=== PATIENT | male | born 1945 | race Caucasian/White ===

== ENCOUNTER 2020-07-02 16:37 | Observation (INO) | payer MEDICARE, BC ==
[~2020-07-02] VITALS: Ht 177.8 cm; Wt 80.9 kg
[2020-07-02] MEDS ORDERED: WELLBUTRIN SR150 M1 PO (17:22)
[2020-07-02] MEDS ORDERED: ELIQUIS 5MG PO (17:23)
[2020-07-02] MEDS ORDERED: ZESTRIL 10MG10 MG PO (17:25)
[2020-07-02] MEDS ORDERED: TOPROL XL 25MG25 MG PO (17:26)
[2020-07-02] MEDS ORDERED: VENTOLIN0.09 MG IH (17:27)
[2020-07-02 18:38] LABS: BASO # 0.1 (0.0-0.2); BASO % 0.4 % (0.0-2.0); EOS # 0.2 (0.0-0.7); EOS % 1.5 % (0-4.0); GRAN # 12.3 (1.4-6.5); GRAN % 78.6 % (42.2-75.2); HEMATOCRIT 45.5 % (42.0-52.0); LYMPH # 1.6 (1.2-3.4); LYMPH % 10.5 % (20.0-51.0); MEAN CELL VOLUME 90 fl (80.0-100.0); MEAN CORPUSCULAR HEMOGLOBIN 30 pg (27.0-31.0); MEAN CORPUSCULAR HGB CONC 33 g/dl (33.0-37.0); MEAN PLATELET VOLUME 9.3 fl (7.4-10.4); MONO # 1.3 (0.1-0.6); MONO % 8.5 % (1.7-9.3); PLATELET COUNT 421 K/mm3 (130-400); RED BLOOD COUNT 5.05 M/mm3 (4.20-5.60); REDCELL DISTRIBUTION WIDTH-CV 14.2 % (11.5-14.5)
[2020-07-02 18:41] LABS: ALBUMIN 4.2 gm/dL (3.5-5.0); BILIRUBIN,TOTAL 0.6 mg/dL (0.0-1.0); CALCIUM 9.3 mg/dL (8.4-10.2); CREATININE, serum 1.23 (0.66-1.25); TOTAL PROTEIN 8.1 gm/dL (6.4-8.2)
[2020-07-02 19:01] VITALS: BP 148/86; PULSE 54; TEMP 97.7
[2020-07-02] MEDS ORDERED: LOPRESSOR 550 MG/TAB PO (21:54)
[2020-07-02 22:16] VITALS: BP 98/53; PULSE 52; TEMP 99.3
--- NOTE | 2020-07-02 22:50 | NUR ---
Admission B form completed at this time. Pt resting in bed at this time. A&O x4. Complaints of intermittent LLQ pain that is only present with palpation or movement. Pt states when he is laying still in bed he does not have any pain. IVF infusing per orders to left hand IV. Pt denies any other needs at this time. Call light within reach.
[2020-07-02 23:03] VITALS: BP 101/59
[2020-07-03] VITALS (7 sets, daily range): BP systolic 100–145; BP diastolic 49–86; PULSE 53–86; TEMP 97.4–98.9
--- NOTE | 2020-07-03 05:20 | NUR ---
Pt has been resting in bed overnight. Complaints of pain to LLQ only with movement or palpation overnight however denied the need for pain medication. IVF infusing per orders to left hand IV. Pt denies any other needs. Call light within reach.
[2020-07-03 09:25] LABS: BASO # 0.1 (0.0-0.2); BASO % 0.4 % (0.0-2.0); EOS # 0.3 (0.0-0.7); EOS % 2.2 % (0-4.0); GRAN # 8.6 (1.4-6.5); GRAN % 76.7 % (42.2-75.2); HEMATOCRIT 43.9 % (42.0-52.0); HEMOGLOBIN 14.3 g/dl (13.5-18.0); LYMPH # 1.4 (1.2-3.4); LYMPH % 12.1 % (20.0-51.0); MEAN CELL VOLUME 91 fl (80.0-100.0); MEAN CORPUSCULAR HEMOGLOBIN 30 pg (27.0-31.0); MEAN CORPUSCULAR HGB CONC 33 g/dl (33.0-37.0); MEAN PLATELET VOLUME 9.5 fl (7.4-10.4); MONO # 0.9 (0.1-0.6); MONO % 8.2 % (1.7-9.3); PLATELET COUNT 362 K/mm3 (130-400); RED BLOOD COUNT 4.82 M/mm3 (4.20-5.60); REDCELL DISTRIBUTION WIDTH-CV 14.1 % (11.5-14.5)
[2020-07-03 09:35] LABS: CREATININE, serum 1.19 (0.66-1.25); POTASSIUM 3.8 mmol/L (3.4-5.0)
--- NOTE | 2020-07-03 11:40 | NUR ---
Pt assessment completed and charted. Medications administered per MAR. Pt is A&O, independent in room, on room air, breathing is even and unlabored. Pt denies SOB, N/V/D, abd pain, chest pain. Pulses strong bilaterally. HR irregular, afib on tele, rate control. BP meds held this morning per parameters, SBP <110. BS hypoactive, abd rounded/firm. Pt denies any pain or needs at this time. Call light within reach.
--- NOTE | 2020-07-03 23:00 | NUR ---
Pt assessment completed and charted, alert, oriented, roomair. Meds provided as per DEC, tolerated well. Helped settled on bed, call light on reach. No further needs at this time.
[2020-07-04 00:02] VITALS: BP 152/66; PULSE 49; TEMP 98.7
[2020-07-04 04:31] VITALS: BP 126/29; PULSE 54; TEMP 98.3
[2020-07-04 07:09] VITALS: BP 142/70; PULSE 58; TEMP 98.6
--- NOTE | 2020-07-04 07:36 | NUR ---
Pt slept through out the night. Morning meds provided as per DEC. Handover provided to the day nurse.
--- NOTE | 2020-07-04 08:00 | NUR ---
Patient sitting up in bed watching TV. Patient A&Ox4. VSS. IV CDI, fluids infusing. Denies pain and discomfort. No further needs expressed from the patient. Patient is set to DC home today. Call light within reach.
[2020-07-04 08:20] LABS: BASO # 0.1 (0.0-0.2); BASO % 0.4 % (0.0-2.0); EOS # 0.3 (0.0-0.7); EOS % 2.7 % (0-4.0); GRAN # 8.4 (1.4-6.5); GRAN % 73.8 % (42.2-75.2); HEMATOCRIT 43.5 % (42.0-52.0); HEMOGLOBIN 14.6 g/dl (13.5-18.0); LYMPH # 1.7 (1.2-3.4); LYMPH % 14.6 % (20.0-51.0); MEAN CELL VOLUME 91 fl (80.0-100.0); MEAN CORPUSCULAR HEMOGLOBIN 31 pg (27.0-31.0); MEAN CORPUSCULAR HGB CONC 34 g/dl (33.0-37.0); MEAN PLATELET VOLUME 9.8 fl (7.4-10.4); MONO # 0.9 (0.1-0.6); MONO % 8.1 % (1.7-9.3); PLATELET COUNT 411 K/mm3 (130-400); RED BLOOD COUNT 4.76 M/mm3 (4.20-5.60); REDCELL DISTRIBUTION WIDTH-CV 14.2 % (11.5-14.5)
[2020-07-04] MEDS ORDERED: CIPRO 500MG TA500 MG PO (08:23)
[2020-07-04] MEDS ORDERED: FLAGYL500 MG PO (08:23)
[2020-07-04 08:37] LABS: ALBUMIN 3.9 gm/dL (3.5-5.0); BILIRUBIN,TOTAL 0.4 mg/dL (0.0-1.0); CALCIUM 8.9 mg/dL (8.4-10.2); CREATININE, serum 1.08 (0.66-1.25); POTASSIUM 3.7 mmol/L (3.4-5.0); TOTAL PROTEIN 7.7 gm/dL (6.4-8.2)
[2020-07-04 09:01] LABS: CHOLESTEROL RISK RATIO 5.9
--- NOTE | 2020-07-04 10:43 | NUR ---
Discharge paperwork reviewed with the patient. Patient verbalized an understanding to follow doctors orders. IV removed, tip intact, gauze and coban applied. Patient tolerated well. Patient dressed indenpendently. No further needs expressed from the patient. Call light within reach
--- NOTE | 2020-07-04 14:32 | NUR ---
Patient transfered by wheelchair to vehicle. Personal belongings and discharge paperwork with patient. No further needs expressed from the patient
== END 2020-07-04 14:35 | disposition home or self-care (01) ==
LOC: MEDICAL 16:37
PROVIDERS: Physician Assistant; ADMIT Internal Medicine Pulmonary Disease
DX: K57.32 Diverticulitis of large intestine without perforation or abscess without bleeding (principal); N28.1 Cyst of kidney, acquired; I48.91 Unspecified atrial fibrillation; I95.9 Hypotension, unspecified; I10 Essential (primary) hypertension; F17.210 Nicotine dependence, cigarettes, uncomplicated; F32.9 Major depressive disorder, single episode, unspecified; I70.0 Atherosclerosis of aorta; Z79.01 Long term (current) use of anticoagulants
CPT/HCPCS: A9585; G0378; G0379; J1650; J2543; J7030; J7120; Q9967

== ENCOUNTER 2021-01-31 12:38 | Observation (INO) | payer MEDICARE, BC ==
[~2021-01-31] VITALS: Ht 177.8 cm; Wt 72.7 kg
[~2021-01-31 12:38] MED LIST: CIPRO 500MG TA500 MG PO; ELIQUIS 5MG PO; FLAGYL500 MG PO; LOPRESSOR 550 MG/TAB PO; TOPROL XL 25MG25 MG PO; VENTOLIN0.09 MG IH; WELLBUTRIN SR150 M1 PO; ZESTRIL 10MG10 MG PO
[2021-01-31] MEDS ORDERED: VANCOCIN H125 MG/CAP PO (12:53)
[2021-01-31 13:19] LABS: BASO # 0.1 (0.0-0.2); BASO % 0.5 % (0.0-2.0); EOS # 0.1 (0.0-0.7); EOS % 0.9 % (0-4.0); GRAN # 12.2 (1.4-6.5); GRAN % 80.9 % (42.2-75.2); HEMATOCRIT 46.2 % (42.0-52.0); HEMOGLOBIN 15.3 g/dl (13.5-18.0); LYMPH # 1.6 (1.2-3.4); LYMPH % 10.6 % (20.0-51.0); MEAN CELL VOLUME 91 fl (80.0-100.0); MEAN CORPUSCULAR HEMOGLOBIN 30 pg (27.0-31.0); MEAN CORPUSCULAR HGB CONC 33 g/dl (33.0-37.0); MEAN PLATELET VOLUME 10.1 fl (7.4-10.4); MONO % 6.4 % (1.7-9.3); PLATELET COUNT 437 K/mm3 (130-400); RED BLOOD COUNT 5.06 M/mm3 (4.20-5.60); REDCELL DISTRIBUTION WIDTH-CV 14.3 % (11.5-14.5)
[2021-01-31 13:45] LABS: INR 1.8 (0.8-3.0); PROTHROMBIN TIME 19.8 SECONDS (9.7-12.8)
[2021-01-31 13:47] LABS: ALBUMIN 4.2 gm/dL (3.5-5.0); BILIRUBIN,TOTAL 0.5 mg/dL (0.0-1.0); CALCIUM 9.4 mg/dL (8.4-10.2); CREATININE, serum 1.12 (0.66-1.25); POTASSIUM 5.1 mmol/L (3.4-5.0)
[2021-01-31 13:48] LABS: PARTIAL THROMBOPLASTIN TIME 50.7 SECONDS (26.0-37.0)
--- NOTE | 2021-01-31 15:18 | NUR ---
Patient to room via stretcher from ER. Transfers self from stretcher into room into bed. Gait steady. Alert and oriented x4. Daughter is with the patient. Patient uses bathroom at this time, has loose stool. Rates pain 1-2/10 in lower left abd, describes as throbbing when it starts to get worse. Oriented to room. Water provided.
[2021-01-31 15:27] VITALS: BP 126/93; PULSE 70; TEMP 98.1
--- NOTE | 2021-01-31 17:41 | NUR ---
Sitting up in bed just finished eating dinner. Minimal pain at this time. Daughter at bedside. Patient denies needs at this time.
--- NOTE | 2021-01-31 19:10 | NUR ---
RECEIVED REPORT FROM DISTRICT ADMINISTRATIVE ASSISTANT CHARGE NURSE.
[2021-01-31 19:29] VITALS: BP 117/63; PULSE 80; TEMP 98.1
--- NOTE | 2021-01-31 20:00 | NUR ---
DENIES CHEST PAIN/SOA/NAUESA AT THIS TIME. REPORTS HAS PRODUCTIVE COUGH DUE TO PRE-EXISTING LUNG PROBLEMS. SALINE LOCK IN PLACE.
[2021-01-31 23:43] VITALS: BP 122/66; PULSE 81; TEMP 100.2
[2021-02-01 02:31] VITALS: TEMP 99.8
[2021-02-01 04:19] VITALS: BP 116/65; PULSE 75; TEMP 98.6
[2021-02-01 06:46] LABS: BASO # 0.1 (0.0-0.2); BASO % 0.6 % (0.0-2.0); EOS # 0.2 (0.0-0.7); EOS % 1.1 % (0-4.0); GRAN # 10.8 (1.4-6.5); GRAN % 76.8 % (42.2-75.2); HEMATOCRIT 44.8 % (42.0-52.0); HEMOGLOBIN 14.6 g/dl (13.5-18.0); LYMPH # 1.8 (1.2-3.4); LYMPH % 12.6 % (20.0-51.0); MEAN CELL VOLUME 91 fl (80.0-100.0); MEAN CORPUSCULAR HEMOGLOBIN 30 pg (27.0-31.0); MEAN CORPUSCULAR HGB CONC 33 g/dl (33.0-37.0); MONO # 1.2 (0.1-0.6); MONO % 8.3 % (1.7-9.3); PLATELET COUNT 509 K/mm3 (130-400); RED BLOOD COUNT 4.95 M/mm3 (4.20-5.60); REDCELL DISTRIBUTION WIDTH-CV 14.2 % (11.5-14.5)
--- NOTE | 2021-02-01 06:55 | NUR ---
CHANGE OF SHIFT REPORT GIVEN TO DAY SHIFT NURSE, SUN Perez RN.
[2021-02-01 07:04] LABS: CALCIUM 9.1 mg/dL (8.4-10.2); CREATININE, serum 1.28 (0.66-1.25); POTASSIUM 4.2 mmol/L (3.4-5.0)
[2021-02-01 08:50] VITALS: BP 114/72; PULSE 80; TEMP 97.7
--- NOTE | 2021-02-01 09:09 | NUR ---
The patient is positive for c.diff. SW contacted the patient's , Alysa (ph#[phone]), to discuss discharge plan. The patient lives in [place] with his . She reports that the patient is independent with ADLs and does not have any DME. The patient's PCP is Dr. Justin Perez and he receives his medications from [facility]. Alysa reports no difficulties obtaining his meds. The patient does not have a DPOA-HC. Alysa reports that the plan is for the patient to return back home with her upon discharge. No additional needs at this time.
--- NOTE | 2021-02-01 09:10 | NUR ---
Pt doing well this morning and overall reports feeling much better. Pt's daughter is in the room with him at this time. He states that he is not much of a breakfast eat, but will order something when he gets hungry. Provided education to him on a low fiber diet. Pt states that he is not having any pain at this time, but that it does increase a little when his stomach is pushed on. No other needs, call light within reach, will continue to monitor
[2021-02-01 12:00] VITALS: BP 99/63; PULSE 64; TEMP 97.3
[2021-02-01 15:21] VITALS: BP 94/52; PULSE 56; TEMP 97.4
--- NOTE | 2021-02-01 17:49 | NUR ---
Pt continues to do well. States that his pain is much better and only hurts if his stomach is pushed on. Tolerating low fiber diet. No needs, will continue to monitor
[2021-02-01 19:34] VITALS: BP 110/53; PULSE 60; TEMP 97.7
--- NOTE | 2021-02-01 20:15 | NUR ---
Initial shift assessment done- VSS, denies pain, states having liquid/soft stools scant amount about every 4-5 hrs-- states stools less frequent than yesterday. Tolerating low fiber diet, no nausea. Hopes to go home tomorrow-
[2021-02-02 00:41] VITALS: BP 94/51; PULSE 82; TEMP 97.8
[2021-02-02 03:45] VITALS: BP 120/63; PULSE 79; TEMP 97.7
--- NOTE | 2021-02-02 06:03 | NUR ---
Quiet night- VSS, denies pain throughout the night- no changes
--- NOTE | 2021-02-02 06:40 | NUR ---
Pt resting with eyes closed, even non labored breathing
[2021-02-02 07:15] VITALS: BP 122/75; PULSE 79; TEMP 97.5
--- NOTE | 2021-02-02 08:31 | NUR ---
Pt doing well this morning. No complaints of pain, tolerated breakfast. Lab present in the room for lab draw.
[2021-02-02 09:09] LABS: BASO # 0.1 (0.0-0.2); BASO % 0.7 % (0.0-2.0); EOS # 0.3 (0.0-0.7); EOS % 2.9 % (0-4.0); GRAN # 6.2 (1.4-6.5); GRAN % 73.4 % (42.2-75.2); HEMATOCRIT 47.6 % (42.0-52.0); HEMOGLOBIN 15.5 g/dl (13.5-18.0); LYMPH # 1.5 (1.2-3.4); MEAN CELL VOLUME 90 fl (80.0-100.0); MEAN CORPUSCULAR HEMOGLOBIN 29 pg (27.0-31.0); MEAN CORPUSCULAR HGB CONC 33 g/dl (33.0-37.0); MEAN PLATELET VOLUME 9.9 fl (7.4-10.4); MONO # 0.5 (0.1-0.6); MONO % 5.5 % (1.7-9.3); PLATELET COUNT 533 K/mm3 (130-400); RED BLOOD COUNT 5.29 M/mm3 (4.20-5.60)
[2021-02-02 09:14] LABS: CALCIUM 9.5 mg/dL (8.4-10.2); CREATININE, serum 1.31 (0.66-1.25); POTASSIUM 4.6 mmol/L (3.4-5.0)
[2021-02-02 11:34] VITALS: BP 103/57; PULSE 63; TEMP 97.7
--- NOTE | 2021-02-02 12:30 | NUR ---
Pt continues to have no complaints of pain. He stated that his stool is becoming more soft than loose and less frequent. Tolerating general diet, no needs verbalized, will continue to monitor
[2021-02-02] MEDS ORDERED: FLAGYL500 MG PO (13:23)
[2021-02-02] MEDS ORDERED: CIPRO 500MG TA500 MG PO (13:23)
--- NOTE | 2021-02-02 14:09 | NUR ---
Dr Solis in to see patient, new orders wrote. Reviewed discharge instructions with patient to include medications and follow up appointment. No questions at this time. PT is waiting on his daughter to pick him up. Informed him to notify nursing when she arrives so that he can be escorted out.
== END 2021-02-02 15:00 | disposition home or self-care (01) ==
LOC: COL.ER 12:38 → SURG 14:30
PROVIDERS: Emergency Medicine; ADMIT Surgery
DX: K57.92 Diverticulitis of intestine, part unspecified, without perforation or abscess without bleeding (principal); A04.72 Enterocolitis due to Clostridium difficile, not specified as recurrent; J44.9 Chronic obstructive pulmonary disease, unspecified; F17.210 Nicotine dependence, cigarettes, uncomplicated; Z79.899 Other long term (current) drug therapy; Z79.01 Long term (current) use of anticoagulants
CPT/HCPCS: G0378; J0744; J1650; Q9967

== ENCOUNTER 2021-04-07 07:51 | Day surgery (SDC) | payer MEDICARE, BC ==
[~2021-04-07] VITALS: Ht 177.8 cm; Wt 73.9 kg
[~2021-04-07 07:51] MED LIST changes: +VANCOCIN H125 MG/CAP PO
[2021-04-07 08:53] VITALS: BP 144/72; PULSE 46; TEMP 97.2
[2021-04-07 09:45] VITALS: BP 120/56; PULSE 54; TEMP 97.5
--- NOTE | 2021-04-07 09:45 | NUR ---
PATIENT TRANSPORTED PER CART FROM GI SUITE TO BAY 1 ACCOMPANIED BY PANDA RN. PATIENT AMBULATED FROM CART TO CHAIR WITH SLOW STEADY GAIT WITH 2 ASSIST. MONITORS APPLIED. VSS ON ROOM AIR. IN ROOM. VERBAL REPORT RECEIVED.
[2021-04-07 10:00] VITALS: BP 136/88; PULSE 52
--- NOTE | 2021-04-07 10:00 | NUR ---
VSS ON ROOM AIR. PATIENT EATS TOAST AND DRINKS PEPSI WITHOUT PROBLEMS. TALKS WITH .
[2021-04-07 10:15] VITALS: BP 127/54; PULSE 56
--- NOTE | 2021-04-07 10:25 | NUR ---
VSS ON ROOM AIR. DR KELLEY IN ROOM AND SPEAKS WITH PATIENT.
[2021-04-07 10:30] VITALS: BP 118/80; PULSE 47
--- NOTE | 2021-04-07 10:40 | NUR ---
PATEINT DENIES DISCOMFORT AND NAUSEA. 1050 IV DC'D WITH CATHETER TIP INTACT. PRESSURE AND BANDAGE APPLIED.
[2021-04-07 10:45] VITALS: BP 121/69; PULSE 51
--- NOTE | 2021-04-07 10:56 | NUR ---
DISCHARGE INSTRUCTIONS GIVEN VERBAL AND DISCHARGE PACKET PROVIDED. QUESTIONS ANSWERED AND PATIENT VOICED UNDERSTANDING. VOICED UNDERSTANDING. PATIENT CHANGES INTO STREET CLOTHES. 1105 PATIENT DISMISSED PER WHEEL CHAIR ACCOMPANIED BY AMB RN TO PRIVATE VECHILE DRIVEN BY .
== END 2021-04-07 11:05 | disposition home or self-care (01) ==
LOC: SDCO 07:51
DX: Z12.11 Encounter for screening for malignant neoplasm of colon (principal); D12.5 Benign neoplasm of sigmoid colon; K92.2 Gastrointestinal hemorrhage, unspecified; K63.5 Polyp of colon; K52.9 Noninfective gastroenteritis and colitis, unspecified; K57.31 Diverticulosis of large intestine without perforation or abscess with bleeding; I10 Essential (primary) hypertension; I48.91 Unspecified atrial fibrillation; J44.9 Chronic obstructive pulmonary disease, unspecified; F17.210 Nicotine dependence, cigarettes, uncomplicated; Z79.899 Other long term (current) drug therapy; Z79.01 Long term (current) use of anticoagulants; Z86.19 Personal history of other infectious and parasitic diseases
CPT/HCPCS: J2704; J3010; J7120

== ENCOUNTER 2021-05-19 11:44 | Inpatient (IN) | payer MEDICARE, BC ==
[~2021-05-19] VITALS: Ht 177.8 cm; Wt 74.6 kg
[2021-05-19 12:17] VITALS: BP 138/77; PULSE 79; TEMP 98.6
--- NOTE | 2021-05-19 12:45 | NUR ---
The patient was taken over to the recovery room to have a nerve block placed prior to surgery. The patient's chart was sent with him to the recovery room. The patient's belonging will be taken over to the recovery room and will be transferred to the his room post operatively.
[2021-05-19 15:43] VITALS: BP 146/83; PULSE 74; TEMP 98
[2021-05-19 19:25] VITALS: BP 139/83; PULSE 77; TEMP 97.7
--- NOTE | 2021-05-19 22:29 | NUR ---
Pt has been well but tired. Pain rated 0/10. Vss .Will conitnue to monitor.
[2021-05-19 22:58] LABS: BASO % 0.4 % (0.0-2.0); EOS # 0.2 (0.0-0.7); GRAN # 4.8 (1.4-6.5); GRAN % 59.5 % (42.2-75.2); HEMATOCRIT 51.5 % (42.0-52.0); HEMOGLOBIN 17.1 g/dl (13.5-18.0); LYMPH # 2.3 (1.2-3.4); LYMPH % 27.8 % (20.0-51.0); MEAN CELL VOLUME 91 fl (80.0-100.0); MEAN CORPUSCULAR HEMOGLOBIN 30 pg (27.0-31.0); MEAN CORPUSCULAR HGB CONC 33 g/dl (33.0-37.0); MEAN PLATELET VOLUME 9.6 fl (7.4-10.4); MONO # 0.8 (0.1-0.6); MONO % 10.1 % (1.7-9.3); PLATELET COUNT 324 K/mm3 (130-400); RED BLOOD COUNT 5.68 M/mm3 (4.20-5.60); REDCELL DISTRIBUTION WIDTH-CV 14.8 % (11.5-14.5)
[2021-05-19 23:09] LABS: ALBUMIN 3.8 gm/dL (3.5-5.0); BILIRUBIN,TOTAL 0.3 mg/dL (0.0-1.0); CREATININE, serum 1.16 (0.66-1.25); TOTAL PROTEIN 7.5 gm/dL (6.4-8.2)
[2021-05-19 23:23] VITALS: BP 132/87; PULSE 78; TEMP 97.8
[2021-05-19 23:39] LABS: TSH w REFLEX 1.48 uIU/mL (0.465-4.680)
[2021-05-20] VITALS (12 sets, daily range): BP systolic 123–188; BP diastolic 73–90; PULSE 75–98; TEMP 97.4–98
--- NOTE | 2021-05-20 02:07 | NUR ---
pt's called last night for update.
--- NOTE | 2021-05-20 03:01 | NUR ---
Telemetry has called to report the pt has been having pause less then 30 sec and it happens frequently.I took a set of vitals,called Breanne to notified . Breanne ordered EkG. Rt was called to get the EKG done.
--- NOTE | 2021-05-20 12:32 | NUR ---
SW met with patient to complete intake. Patient states that he lives in [place] with his spouse Alysa [phone] who he also appointed as his DPOA-HC. Document completed, reviewed, signed by patient and witnessed by staff. Original document placed in chart and copies provided to patient. Patient states that he does not utilize DME and is independent with ADL's. Patient provides that his PCP is Curt, pharmacy is [facility] in [place], and is able to afford his medication. Patient states his plan is to go back home up on DC. SW will continue to follow. Plan: Home with spouse
[2021-05-20 15:11] LABS: CALCIUM 9.4 mg/dL (8.4-10.2); CREATININE, serum 1.01 (0.66-1.25); POTASSIUM 4.3 mmol/L (3.4-5.0)
--- NOTE | 2021-05-20 18:30 | NUR ---
Patient has been doing well today. He is on clear liquids and NPO after midnight. He will be having a heart cath at 0800 tomorrow. Discussed with patient his what the plan is for tomorrow. Explained the plan depends on what happens with his heart cath. He is tolerating diet well without nausea or pain. No other changes at this time. Call light within reach. Heart rate has been steady in the 60's after getting amiodarone.
--- NOTE | 2021-05-20 19:13 | NUR ---
RECEIVED CHANGE OF SHIFT REPORT FROM DAY SHIFT NURSE.
--- NOTE | 2021-05-20 20:00 | NUR ---
DENIES CHEST PAIN/SOA/NAUSEA AT THIS TIME. DENIES NUMBNESS/TINGLING TO EXTREMITIES. DENIES ANY QUESTIONS REGARDING SCHEDULED HEART CATH FOR EARLY AM. IVF INFUSING WITH NO PROBLEMS. TELE IN PLACE.
[2021-05-21] VITALS (174 sets, daily range): BP systolic 103–170; BP diastolic 59–111; PULSE 74–97; TEMP 97–98.3; O2SAT 93–97
--- NOTE | 2021-05-21 00:04 | NUR ---
PER TELE, REPORTED ELEVATED HR UP IN 160's
--- NOTE | 2021-05-21 00:09 | NUR ---
CHECKED WITH TELE, REPORTED PATIENT ELEVATED HR LASTED 4 MIN. PATIENT DENIED CHEST PAIN/SOA DURING TIME OF RAPID HEART RATE, SEE MED[employer] FOR VS TAKEN. SKIN WARM AND DRY. IV FUSING WITH NO PROBLEMS.
--- NOTE | 2021-05-21 03:39 | NUR ---
PER TELE, PATIENT'S HR ELEVATED TO 150's "FOR A FEW SECONDS THEN WENT BACK DOWN"
--- NOTE | 2021-05-21 03:41 | NUR ---
PER TELE, HEART RATE ELEVATED TO 160'S FOR "A MOMENT... THEN NOW IS 108 THEN DOWN TO 83"
--- NOTE | 2021-05-21 06:54 | NUR ---
CHANGE OF SHIFT REPORT GIVEN TO DAY SHIFT NURSE, MARCUS MCCRARY.
[2021-05-21 07:19] LABS: CALCIUM 8.9 mg/dL (8.4-10.2); CREATININE, serum 0.89 (0.66-1.25)
[2021-05-21 07:20] LABS: BASO # 0.1 (0.0-0.2); BASO % 0.6 % (0.0-2.0); EOS # 0.2 (0.0-0.7); EOS % 2.3 % (0-4.0); GRAN # 5.9 (1.4-6.5); GRAN % 70.2 % (42.2-75.2); HEMATOCRIT 47.3 % (42.0-52.0); HEMOGLOBIN 15.8 g/dl (13.5-18.0); LYMPH # 1.6 (1.2-3.4); LYMPH % 18.6 % (20.0-51.0); MEAN CELL VOLUME 91 fl (80.0-100.0); MEAN CORPUSCULAR HEMOGLOBIN 31 pg (27.0-31.0); MEAN CORPUSCULAR HGB CONC 33 g/dl (33.0-37.0); MONO # 0.7 (0.1-0.6); MONO % 8.1 % (1.7-9.3); PLATELET COUNT 283 K/mm3 (130-400); RED BLOOD COUNT 5.18 M/mm3 (4.20-5.60); REDCELL DISTRIBUTION WIDTH-CV 14.7 % (11.5-14.5)
--- NOTE | 2021-05-21 08:09 | NUR ---
SEE MERGE DOCUMENTATION FOR MEDICATION ADMINISTRATION TIMES AND INTRA/POST PROCEDURE SEDATION ASSESSMENTS.
--- NOTE | 2021-05-21 08:57 | NUR ---
Patient to laboratory supervisor with HERMANN Bar at 0800. Returns at 0845.
--- NOTE | 2021-05-21 09:20 | NUR ---
Patient alert and oriented, answers questions appropriately. Heart tones strong and uneven, pulses palpable. No c/o chest/arm pain or pressure, no c/o vertigo. TR band in place to right radial site, checks initiated and continued. No bleeding noted at right radial site. Dr Solis updated on status of heart cath. No c/o at this time.
--- NOTE | 2021-05-21 10:51 | NUR ---
Initial visit; Patient thanked Edi Programmer Analyst for looking in on him and keeping him in her prayers.
--- NOTE | 2021-05-21 12:01 | NUR ---
To surgery with surgical staff at this time.
--- NOTE | 2021-05-21 17:15 | NUR ---
PATIENT ARRIVES TO ICU ROOM 7. HE IS AWAKE, ALERT AND VS WNL. LR HANGING BY GRAVITY AND LEFT RADIAL ARTERIAL LINE IN PLACE. PATIENT HAS BALL TO DEPENDENT DRAINAGE. LAP SITES ASSESSED, DRESSINGS CLEAN AND DRY. PATIENT HAS SOME MILD N/V, EMESIS BAG GIVEN TO PATIENT. HE GAGS UP FROTHY SPUTUM FROM BACK OF THROAT. PATIENT IS ORIENTED TO ROOM, ASSESSED AND CALL LIGHT IS WITHIN REACH.
--- NOTE | 2021-05-21 18:00 | NUR ---
PATIENT CAME TO ICU FROM PACU WITH LEFT RADIAL ARTERIAL LINE IN PLACE. WAS ASKED IF THIS IS NECESSARY SINCE HIS VITAL SIGNS ARE STABLE. HE GIVES ORDER TO REMOVE ARTERIAL LINE. ART LINE IS REMOVED, PRESSURE HELD AND GAUZE DRESSING IS PLACED.
--- NOTE | 2021-05-21 19:20 | NUR ---
REPORT GIVEN TO HERMANN GR
--- NOTE | 2021-05-21 19:54 | NUR ---
Patient assessed at this time. Alert and oriented x 4, and able to make needs known. Denies having pain and discomfort at this time. Peripheral IV to right hand with LR running at 75 ml/hr per orders. Patient not wanting to eat or drink anything at this time. Encouraged small sips. Denies SOB and dyspnea. On oxygen at 2 L/min via NC. LS fine crackles throughout. Reports occasional moist cough with thin, clear phlegm. Repsirations even and unlabored. HR-irregular, 70s. On telemetry. Capillary refill less than 3 seconds. Non-tenting skin turgor. BS hypoactive x 4. Denies passing gas as this time. 5 lap sites to abdomen with bandaids CDI. Surgical site to lower abdomen with dressing CDI. Sites without redness, warmth, swelling, and draining. Indwelling keller catheter patent, and draining clear yellow urine via dependent drainage. No edema. Patient voices no questions, needs, or concerns at this time. States he is just a little sleepy. at bedside, and voices no questions, needs, or concerns at this time time as well. Patient resting in bed with call light within reach.
--- NOTE | 2021-05-21 20:07 | NUR ---
PATIENT ARRIVES TO ICU ROOM 7, ALERT AND ORIENTED, MILD N/V, VS WNL. ASSESSMENT COMPLETED.
[2021-05-22] VITALS (445 sets, daily range): BP systolic 105–126; BP diastolic 55–80; PULSE 69–82; TEMP 97.9–98.7; O2SAT 82–96
--- NOTE | 2021-05-22 03:58 | NUR ---
Patient reports feeling much better this morning. Denies having pain and discomfort, but did take scheduled Acetaminophen per orders. LR continues to run per orders to IV site to right hand. Encouraged intake, and did drink some fluids. Denies SOB and dyspnea. On oxygen at 1 L/min via NC. LS CTA at this time. Denies recent cough or sputum production. Respirations even and unlabored. HR continues to be irregular. Telemetry in place. Capillary refill less than 3 seconds. Non-tenting skin turgor. Patient denies having any nausea or upset stomach. Reports being able to pass gas this morning. BSAx4. Abdomen soft and non-tender. Surgical sites to quail run behavioral healthen [facility]. Indwelling keller catheter continues to be patent, and draining clear yellow urine via dependent drainage. SCDs are on. Patient voices no questions, needs, or concerns at this time. Resting in bed with call light within reach.
[2021-05-22 05:44] LABS: BASO % 0.2 % (0.0-2.0); GRAN # 11.1 (1.4-6.5); GRAN % 87.5 % (42.2-75.2); HEMATOCRIT 43.8 % (42.0-52.0); HEMOGLOBIN 14.6 g/dl (13.5-18.0); LYMPH # 0.7 (1.2-3.4); LYMPH % 5.6 % (20.0-51.0); MEAN CELL VOLUME 90 fl (80.0-100.0); MEAN CORPUSCULAR HEMOGLOBIN 30 pg (27.0-31.0); MEAN CORPUSCULAR HGB CONC 33 g/dl (33.0-37.0); MEAN PLATELET VOLUME 9.5 fl (7.4-10.4); MONO # 0.8 (0.1-0.6); MONO % 6.3 % (1.7-9.3); PLATELET COUNT 261 K/mm3 (130-400); RED BLOOD COUNT 4.88 M/mm3 (4.20-5.60); REDCELL DISTRIBUTION WIDTH-CV 15.1 % (11.5-14.5)
[2021-05-22 05:59] LABS: CALCIUM 8.8 mg/dL (8.4-10.2); CREATININE, serum 0.96 (0.66-1.25)
[2021-05-22 06:16] LABS: MAGNESIUM 1.7 mg/dL (1.6-2.3); PHOSPHOROUS 4.3 mg/dL (2.5-4.5)
--- NOTE | 2021-05-22 07:00 | NUR ---
RECEIVED REPORT FROM HERMANN GR. PT RESTING IN BED ON 1L VIA NC. FC PATENT AND DRAINING TO GRAVITY. VSS. CALL LIGHT WITHIN REACH. BREAKFAST TRAY ORDERED PER PT'S REQUEST.
--- NOTE | 2021-05-22 08:00 | NUR ---
DR CASTILLO AT BEDSIDE FOR ASSESSMENT. PROVIDER INFORMED THAT PT REFUSED TRAY LAST NIGHT. PROVIDER STATES TO DC IVF AND FC ONCE HE IS TAKING IN MORE PO FLUIDS TODAY. DR CASTILLO STATES FROM HIS STANDPOINT PT CAN GO UPSTAIRS TO THE MEDICAL FLOOR AFTER HOSPITALIST SEES PT.
--- NOTE | 2021-05-22 11:50 | NUR ---
ATTEMPED TO CALL REPORT FOR THE NURSE OF [address], WILL TRY AGAIN.
--- NOTE | 2021-05-22 11:58 | NUR ---
REPORT GIVEN TO HERMANN BOND. PT TO TRANSFER TO [facility] VIA ON 1L VIA NC AND TELEMETRY BOX. ALL PERSONAL BELONGINGS SENT WITH PT.
--- NOTE | 2021-05-22 13:00 | NUR ---
Pt arrived to floor at this time with ICU staff. Resting in bed, denies needs, tolerating CLD well so advanced to [place] for supper, pt agreeable to plan. Denies needs, will continue to monitor.
--- NOTE | 2021-05-22 18:59 | NUR ---
Pt doing well with the keller out, up ad marylu in room and ambulated halls with staff. Doing well, denies needs, nightshift to resume care.
--- NOTE | 2021-05-22 21:50 | NUR ---
Pt seems in good spirit. Full liquid was tolerated. Pain rated 0/10. Vss. Will continue to monitor.
[2021-05-23] VITALS (7 sets, daily range): BP systolic 105–140; BP diastolic 55–89; PULSE 59–87; TEMP 97.8–99.4
[2021-05-23 06:21] LABS: BASO % 0.2 % (0.0-2.0); EOS # 0.1 (0.0-0.7); EOS % 0.9 % (0-4.0); GRAN # 10.5 (1.4-6.5); GRAN % 83.3 % (42.2-75.2); HEMATOCRIT 43.1 % (42.0-52.0); HEMOGLOBIN 14.3 g/dl (13.5-18.0); LYMPH % 7.8 % (20.0-51.0); MEAN CELL VOLUME 91 fl (80.0-100.0); MEAN CORPUSCULAR HEMOGLOBIN 30 pg (27.0-31.0); MEAN CORPUSCULAR HGB CONC 33 g/dl (33.0-37.0); MONO % 7.6 % (1.7-9.3); PLATELET COUNT 235 K/mm3 (130-400); RED BLOOD COUNT 4.73 M/mm3 (4.20-5.60); REDCELL DISTRIBUTION WIDTH-CV 15.2 % (11.5-14.5)
[2021-05-23 06:37] LABS: CALCIUM 8.8 mg/dL (8.4-10.2); CREATININE, serum 0.88 (0.66-1.25); POTASSIUM 3.5 mmol/L (3.4-5.0)
--- NOTE | 2021-05-23 06:55 | NUR ---
awake resting in bed, bedside shift report received from HERMANN Mata
--- NOTE | 2021-05-23 07:28 | NUR ---
sitting up in bed and ready to eat breakfast, denies needs at this time
--- NOTE | 2021-05-23 07:57 | NUR ---
had breakfast and tolerated well, is independent in the room and up and sitting in chair now, full assessment completed, see interventions for further info, has toothbrush and toothpast, will talk with Dr on rounds to verify OK to shower, denies needs
--- NOTE | 2021-05-23 09:29 | NUR ---
Dr Rodriges was in to see patient
--- NOTE | 2021-05-23 10:10 | NUR ---
sitting up in chair, medicated with scheduled t ylenol
--- NOTE | 2021-05-23 10:37 | NUR ---
Dr Dillon in to see patient, explained to patient on how to order lunch and that when he is ready to shower to let this nurse know and will assist him into shower, verbalizes understanding
--- NOTE | 2021-05-23 12:15 | NUR ---
had lunch and will now try to take a nap,
--- NOTE | 2021-05-23 13:15 | NUR ---
appears to be sleeping, in bed with lights off, eyes closed, resp quiet and easy
--- NOTE | 2021-05-23 16:15 | NUR ---
resting in bed, reminded to order supper, verbalizes understanding
--- NOTE | 2021-05-23 17:30 | NUR ---
had supper and tolerated well, denies needs
--- NOTE | 2021-05-23 18:51 | NUR ---
bedside shift report given to Radha Mata
--- NOTE | 2021-05-23 22:47 | NUR ---
Pt has been well and quiet. Pain rated 0/10. Will continue to monitor.
[2021-05-24 04:30] VITALS: BP 141/71; PULSE 64; TEMP 98.1
[2021-05-24 07:46] VITALS: BP 133/73; PULSE 53; TEMP 98
--- NOTE | 2021-05-24 09:48 | NUR ---
Pt assessment complete. Pt laying in bed upon entry, he is A/O x4, his breathing is even and unlabored on RA. Pt denies SOB. Reports soreness to abdomen. No N/V. Reports having a BM this am. No needs at this time. Call light within reach.
--- NOTE | 2021-05-24 10:15 | NUR ---
Initial visit; Patient thanked Fibreglass Laminator for looking in on him and offering God's blessings.
[2021-05-24 11:28] VITALS: BP 126/62; PULSE 81; TEMP 97.8
[2021-05-24] MEDS ORDERED: PACERONE200 MG PO (14:32)
[2021-05-24] MEDS ORDERED: TYLENOL 500MG500 MG PO (14:33)
--- NOTE | 2021-05-24 16:05 | NUR ---
Discharge paperwork and instructions reviewed with patient. All questions answered at this time. IV dc'd catheter tip intact. Pt wheeled out of facility at this time.
== END 2021-05-24 16:05 | disposition home or self-care (01) | DRG 330 ==
LOC: SDCO 11:44 → SURG 11:44 → INPTSU 11:44 → SURG 15:50 → INPTSU 15:50 → SDCO 05-21 16:05 → SURG 05-21 16:06 → ICU 05-21 17:00 → SURG 05-22 13:35
PROVIDERS: Internal Medicine; Internal Medicine Adult Congenital Heart Disease; ADMIT Surgery
PROC: 8E0W4CZ Robotic Assisted Procedure of Trunk Region, Percutaneous Endoscopic Approach (ICD-10-PCS; 2021-05-21)
PROC: 4A023N7 Measurement of Cardiac Sampling and Pressure, Left Heart, Percutaneous Approach (ICD-10-PCS; 2021-05-21)
PROC: B2111ZZ Fluoroscopy of Multiple Coronary Arteries using Low Osmolar Contrast (ICD-10-PCS; 2021-05-21)
PROC: 0DTN4ZZ Resection of Sigmoid Colon, Percutaneous Endoscopic Approach (ICD-10-PCS; principal; 2021-05-21 11:30)
DX: K57.32 Diverticulitis of large intestine without perforation or abscess without bleeding (principal); A01.00 Typhoid fever, unspecified; I42.9 Cardiomyopathy, unspecified; I50.22 Chronic systolic (congestive) heart failure; I48.92 Unspecified atrial flutter; J44.9 Chronic obstructive pulmonary disease, unspecified; I11.0 Hypertensive heart disease with heart failure; Z20.822 Contact with and (suspected) exposure to COVID-19
CPT/HCPCS: OP; 99223; 99231-AI; 99232-AI; 99233-AI; A4314; A9500; C1769; J0690; J1100; J1644; J1650; J1885; J2250; J2370; J2405; J2704; J2785; J2795; J3010; J3480; J7120; Q9967

== ENCOUNTER 2023-01-20 16:29 | Emergency (ER) | payer MEDICARE, BC ==
[~2023-01-20] VITALS: Ht 177.8 cm; Wt 93.2 kg
[~2023-01-20 16:29] MED LIST changes: +APRESOLINE50 MG PO; +ASPIRIN E.C. 8181 MG PO; +CEROVITE SENIOR1 TA1 PO; +COUMADIN4 MG PO; +COZAAR100 MG PO; +K-DUR 10 MEQ T10 MEQ PO; +LASIX 40MG TABL40 MG PO; +LIPITOR 40MG TA40 MG PO; +PACERONE200 MG PO; +PLAVIX 75MG TAB75 MG PO; +PROAIR HFA0.09 MG/AC IH; +RT ADVAIR 228 DISKUS IH; +TYLENOL 500MG500 MG PO
[2023-01-20 18:21] LABS: BASO # 0.1 K/mm3 (0.0-0.2); BASO % 0.8 % (0.0-2.0); EOS # 0.2 K/mm3 (0.0-0.7); EOS % 2.2 % (0.0-4.0); GRAN # 6.4 K/mm3 (1.4-6.5); GRAN % 71.5 % (42.2-75.2); HEMATOCRIT 42.6 % (42.0-52.0); HEMOGLOBIN 14.4 g/dl (13.5-18.0); LYMPH # 1.4 K/mm3 (1.2-3.4); LYMPH % 15.3 % (20.0-51.0); MEAN CELL VOLUME 89 fl (80.0-100.0); MEAN CORPUSCULAR HEMOGLOBIN 30 pg (27-31); MEAN CORPUSCULAR HGB CONC 34 g/dl (33.0-37.0); MEAN PLATELET VOLUME 9.6 fl (7.4-10.4); MONO # 0.9 K/mm3 (0.1-0.6); MONO % 9.9 % (1.7-9.3); PLATELET COUNT 367 K/mm3 (130-400); RED BLOOD COUNT 4.77 M/mm3 (4.20-5.60); REDCELL DISTRIBUTION WIDTH-CV 14.8 % (11.5-14.5)
[2023-01-20 18:37] LABS: ALANINE AMINOTRANSFERASE 28 U/L (0-55); ALBUMIN 4.3 gm/dL (3.4-4.8); ALKALINE PHOSPHATASE 86 U/L (40-150); ANION GAP 11 mmol/L (7-16); AST,SGOT 17 U/L (5-34); BILIRUBIN,TOTAL 0.4 mg/dL (0.2-1.2); BLOOD UREA NITROGEN 27 mg/dL (8-26); CALCIUM 9.8 mg/dL (8.4-10.2); CARBON DIOXIDE 24 mmol/L (23-31); CHLORIDE 106 mmol/L (98-107); CREATININE, serum 1.62 mg/dL (0.72-1.25); GLUCOSE 149 mg/dL (70-99); POTASSIUM 4.3 mmol/L (3.5-4.5); SODIUM 141 mmol/L (136-145); TOTAL PROTEIN 7.9 gm/dL (6.2-8.1)
[2023-01-20 18:52] LABS: TROPONIN-I < 0.010 ng/mL (0.00-0.033)
[2023-01-20 19:06] LABS: COLLECTION METHOD CLEAN CATCH
[2023-01-20 19:21] LABS: URINE APPEARANCE Clear (CLEAR/HAZY); URINE COLOR Yellow (YELLOW)
[2023-01-20 19:22] LABS: PH 5.5 (5.0-8.5); URINE BLOOD Negative (NEGATIVE); URINE GLUCOSE Negative (NEGATIVE); URINE KETONE Negative (NEGATIVE); URINE NITRATE Negative (NEGATIVE); URINE PROTEIN(semi-quant) Negative (NEGATIVE); URINE UROBILINOGEN 0.2 E.U/dL (0.2-1.0)
[2023-01-20 19:25] LABS: MUCOUS Present (NOT PRESENT); SQUAMOUS EPITHELIAL 0-2 /hpf (0-10); URINE BACTERIA None Seen /hpf (NONE SEEN); URINE RBC 0-2 /hpf (0-2); URINE WBC 0-2 /hpf (0-2)
[2023-01-20 20:40] VITALS: BP 134/82; PULSE 58; TEMP 98
== END 2023-01-20 20:40 | disposition home or self-care (01) ==
LOC: COL.ER 16:29
PROVIDERS: Nurse Practitioner
DX: R06.02 Shortness of breath (principal); I48.91 Unspecified atrial fibrillation; Z87.891 Personal history of nicotine dependence; Z95.818 Presence of other cardiac implants and grafts; Z79.02 Long term (current) use of antithrombotics/antiplatelets